=== PATIENT | male | born 1975 | race Caucasian/White ===

== ENCOUNTER 2021-02-09 02:36 | Emergency (ER) | payer OTHER, BC, SELFPAY ==
--- NOTE | ~2021-02-09 | CT_ITS ---
EXAMINATION: CT brain wo con DATE: 02/09/2021 03:44 INDICATION: Head injury post fall presenting with nausea and vomiting TECHNIQUE: Computed tomography (CT) of the head was performed without intravenous contrast. Sagittal and coronal reconstructions were performed. Automated exposure control and iterative reconstruction t echnique were employed. The dose-length product was 681.00 mGy-cm. COMPARISON: None FINDINGS: No fracture. Very thin hyperdensity which extends in a linear pattern along the anterior falx which c ould represent a vessel but which more posteriorly at the central aspect of the falx extends across a wide region also raising the possibility of either a tiny subdural hemorrhage or dural calcification . No other lesions suspicious for intracranial hemorrhage identified. No acute infarction or abnormal extra axial fluid collection. Ventricles are normal and symmetric. No mass/mass effect. Near complet e opacification of the right frontal and maxillary sinuses and the intervening anterior right ethmoid air cells with complete opacification of the frontoethmoidal recess. The orbits and mastoid air cell s are normal. IMPRESSION: 1. Very thin hyperdense region along the falx which in the acute setting raises concern for a tiny chou bdural hemorrhage. Differential would include dural calcification. 2. Prominent right-sided sinus disease. Reviewed, dictated and finalized at location A. IMPRESSION: 1. Very thin hyperdense region along the falx which in the acute setting raises concern for a tiny subdural hemorrhage. Differential would include dural calci fication. 2. Prominent right-sided sinus disease.
--- NOTE | ~2021-02-09 | XR_ITS ---
EXAMINATION: XR chest 2V DATE: 02/09/2021 03:46 INDICATION: Fall with vomiting TECHNIQUE: PA and lateral views of the chest were obtained. COMPARISON: None FINDINGS: The lungs are clear with no focal airspace opacities, pulmonary edema, pleural effusion or pneumothor ax. The cardiomediastinal silhouette is normal. Visualized bones and soft tissues are unremarkable. IMPRESSION: 1. No acute cardiopulmonary disease. Reviewed, dictated and finalized at location A.
--- NOTE | ~2021-02-09 | CT_ITS ---
EXAMINATION: CT abdomen pelvis w con DATE: 02/09/2021 03:44 INDICATION: Vomiting. Abdominal injury. TECHNIQUE: Computed tomography (CT) of the abdomen and pelvis was performed with 100 mL Omnipaque 350 intravenous contrast. Automated exposure control and iterative reconstruction technique were employe d. The dose-length product was 1447.68 mGy-cm. COMPARISON: None. FINDINGS: The visualized portions of the lung bases demonstrate mild atelectasis. There are 7 mm and 5 mm nodules along the left major fissure. There are 5 mm and 6 mm nodules in right lower lobe. No pl eural effusion. The heart size is normal. No pericardial effusion. The liver, gallbladder, spleen, pa ncreas, adrenal glands, and kidneys are normal. There is a left inguinal hernia containing fat. There are no dilated loops of bowel. The appendix is normal. There is liquid stool in the colon suggestive of diarrhea. There are no pathologically enlarged lymph nodes. There is no free intraperitoneal flui d. There are chronic bilateral L5 pars defects with 8 mm anterolisthesis of L5 on S1. There is severe lower lumbar spondylosis. IMPRESSION: 1. Pulmonary nodules measuring up to 7 mm, probably benign. Consider noncontrast chest CT in 6-12 mon ths. 2. Left inguinal hernia containing fat. Reviewed, dictated and finalized at location B. IMPRESSION: 1. Pulmonary nodules measuring up to 7 mm, probably benign. Consider noncontras t chest CT in 6-12 months. 2. Left inguinal hernia containing fat.
--- NOTE | 2021-02-09 02:40 | ED.NAVMDI ---
HPI - Nausea/Vomiting/Diarrhea General Chief complaint: Nausea/Vomiting/Diarrhea Stated complaint: n/v Time Seen by Provider: 02/09/21 02:40 Source: patient and family Mode of arrival: ambulatory Limitations: no limitations History of Present Illness HPI Narrative: Patient is a 45-year-old male who presents for evaluation of nausea, vomiting, abdominal pain since a fall this evening. Patient has had intermittent abdominal pain, numerous episodes of nonbloody, nonbilious emesis since a fall from 8 feet earlier today. 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 Patient is not sure if he had any head trauma, unsure about loss of consciousness, but states he thinks he does not did not lose consciousness. He denies any headache, vision changes, focal weakness or numbness. He reports nausea with numerous episodes of vomiting. He reports intermittent mild frontal abdominal pain. He denies flank pain. No dysuria. He reports he was seen at an urgent care when he had some bruising to his left leg and hip pain and all of his x-rays were negative. He is walking normally. He is not on any anticoagulation. Related Data Home Medications Medication Instructions Recorded Confirmed No Home Medications 02/09/21 02/09/21 Allergies Allergy/AdvReac Type Severity Reaction Status Date / Time No Known Allergies Allergy Verified 02/09/21 02:59 Review of Systems Review of Systems: Narrative: CONSTITUTIONAL: Denies fever, chills, or sweats. EYES: Denies visual changes, redness, or discharge. ENT: Denies rhinorrhea, congestion, sore throat, or otalgia. CARDIOVASCULAR: Denies chest pain, palpitations, or edema. RESPIRATORY: Denies cough or dyspnea. GASTROINTESTINAL: Reports abdominal pain, nausea and vomiting GENITOURINARY: Denies dysuria or hematuria. SKIN: Denies rash or itching. MUSCULOSKELETAL: Denies back pain, joint pain, or myalgia. NEUROLOGIC: Denies headache, numbness, or weakness. [facility] Social History Social History (Updated 02/09/21 @ 02:59 by Laura Rodrigues MD) Smoking status: Never smoker Alcohol intake: never Substance use: never Living arrangements: with family Gender identity (if verbalized by the patient): Male Exam Narrative: Exam Narrative: Nursing note and vitals reviewed. CONSTITUTIONAL: The patient appears well-developed and well-nourished. No distress. HEAD: Normocephalic and atraumatic. EYES: PERRL, EOMI, normal conjunctiva, anicteric EARS: External ears clear bilaterally, no hemotympanum MOUTH: OP clear, no erythema, exudates NECK: midline trachea, supple, FROM. No midline cervical spinal tenderness. CARDIOVASCULAR: Normal rate, regular rhythm, normal heart sounds and intact distal pulses. No murmurs, rubs, gallops. PULMONARY: Effort normal and breath sounds normal. No respiratory distress. The patient has no wheezes, rales, ronchi. No chest wall tenderness, crepitus or ecchymoses. ABDOMINAL: Soft. Nontender, nondistended. No palpable masses. No ecchymoses. EXTREMITIES:: moving all extremities symmetrically. -RUE: No deformity. Normal ROM at shoulder, elbow, wrist, and hand. Sensation intact M/U/R. Pulse 2+. -LUE: No deformity. Normal ROM at shoulder, elbow, wrist, and hand., Sensation intact M/U/R. Pulse 2+ -RLE: No deformity. Normal ROM at hip, knee, ankle. Sensation intact distally. -LLE: No deformity. Normal ROM at hip, knee, ankle. Sensation intact distally. Abrasion to the left lateral thigh, no expanding hematoma. NEUROLOGY: The patient is alert and oriented to person, place, and time. Finger to nose intact bilaterally. EOMs intact without nystagmus. No facial droop/asymmetry noted bilaterally. Grimace intact. Intact sensation in face. Hearing intact bilaterally. Shoulder shrug intact. Strength 5/5 bilateral upper extremities. Strength 5/5 bilateral lower extremities. Reflexes 2+ patellar. Heel to parra intact bilaterally. Course Vital Signs
[2021-02-09 02:41] VITALS: BP 128/98; PULSE 108; RESP 16; O2SAT 98
--- NOTE | 2021-02-09 02:55 | ECG_ITS ---
Measurements Intervals [place] Rate: 101 P: 37 HI: 145 QRS: 7 QRSD: 99 T: 26 QT: 319 QTc: 414 Interpretive Statements SINUS TACHYCARDIA MINIMAL Q WAVES- HIGH LATERAL LEADS BORDERLINE T WAVE ABNORMALITY- INFERIOR LEADS BORDERLINE ECG Electronically Signed On 02-09-2021 7:05:55 CDT by Dajuan Dozier D.O.
[2021-02-09 03:07] LABS: Basophils Percent Auto 0.2 % (0.2-1.2); Eosinophils Absolute Auto 0.1 K/mm3 (0-0.3); Eosinophils Percent Auto 0.3 % (0-4.4); Hematocrit 46.6 % (42.0-52.0); Hemoglobin 15.7 g/dL (14.0-18.0); Immature Granulocyte Absolute 0.05 K/mm3 (0.00-0.031); Immature Granulocyte Percent A 0.3 % (0-0.5); Lymphocytes Percent Auto 2.1 % (18.3-44.2); Mean Corpuscular HGB Conc 33.7 g/dl (32-36); Mean Corpuscular Hemoglobin 30.3 pg (26-34); Mean Platelet Volume 9.4 fl (7.4-10.4); Monocytes Absolute Auto 1.1 K/mm3 (0.1-0.6); Monocytes Percent Auto 7.5 % (2.6-8.5); Neutrophils Absolute Auto 13.1 K/mm3 (1.3-6.7); Neutrophils Percent Auto 89.6 % (45.5-73.1); Platelet Count Result 312 k/mm3 (150-375); Red Blood Count 5.18 M/mm3 (4.6-6.20); Red Cell Distribution Width 13.7 % (11.5-14.5); White Blood Count 14.6 K/mm3 (4.5-10.0)
[2021-02-09] MEDS: SODIUM CHLORIDE 0.9% IV 1,000 ML 999 ML IV CONT (03:07)
[2021-02-09] MEDS: ONDANSETRON INJ 4 MG/2 ML VIAL IV PUSH (03:07)
[2021-02-09 03:13] LABS: Alanine Aminotransferase 26 U/L (4-50); Albumin Level 4.8 g/dL (3.5-5.1); Alkaline Phosphatase 76 U/L (38-126); Anion Gap 8 mmol/L (8-16); Aspartate Amino Transferase 42 U/L (17-59); Bilirubin,Total 1.3 mg/dL (0.2-1.3); Blood Urea Nitrogen 29 mg/dL (9-20); Calcium 9.8 mg/dL (8.4-10.2); Carbon Dioxide 32 mmol/L (22-30); Chloride 102 mmol/L (98-107); Estimated CRCL calculation 66 ml/min; Estimated Glomerular Filt Rate 59; Glucose 164 mg/dL (75-110); Lipase 69 U/L (23-300); Potassium 5.1 mmol/L (3.4-5.0); Sodium 142 mmol/L (137-145)
[2021-02-09 03:53] VITALS: BP 122/82; PULSE 99; RESP 20; O2SAT 99
[2021-02-09 04:18] LABS: Add Urine Microscopic? NO; Appearance Urine Clear (Clear); Bilirubin Urine Negative (Negative); Blood Urine Negative (Negative); Color Urine Yellow (Yellow); Glucose Urine UA Negative (Negative); Ketones Urine Negative (Negative); Leukocyte Esterase Ur Negative LEU/UL (Negative); Nitrate Urine Negative (Negative); Protein Urine Negative (Negative); Urobilinogen Urine Negative mg/dL (<2.0)
[2021-02-09 04:20] LABS: Specific Grav Ur > 1.060 (1.001-1.035)
[2021-02-09 05:18] VITALS: BP 110/72; PULSE 84; RESP 18; O2SAT 99
--- NOTE | 2021-02-09 07:40 | PC.NURSE ---
pt to be direct admit to [facility]. waiting bed assignment.
[2021-02-09 07:41] VITALS: BP 126/87; PULSE 102; RESP 17; O2SAT 99
--- NOTE | 2021-02-09 07:45 | PC.NURSE ---
[facility] bed placement team contacted ed states hospital is full but will call when bed is available.
[2021-02-09 08:17] VITALS: BP 115/85; PULSE 101; RESP 15; O2SAT 99
--- NOTE | 2021-02-09 08:39 | PC.NURSE ---
report to [facility]. pt to be direct admit to [id number].
[2021-02-09 08:41] LABS: Partial Thromboplastin Time 28.3 SECONDS (22.3-36.8)
[2021-02-09 09:30] VITALS: BP 107/75; PULSE 95; RESP 16; O2SAT 98
== END 2021-02-09 09:30 | disposition short-term general hospital (02) ==
PROVIDERS: Emergency Provider Emergency Medicine
DX: S06.300A Unspecified focal traumatic brain injury without loss of consciousness, initial encounter (principal); R11.2 Nausea with vomiting, unspecified; R00.0 Tachycardia, unspecified; R94.31 Abnormal electrocardiogram [ECG] [EKG]; K40.90 Unilateral inguinal hernia, without obstruction or gangrene, not specified as recurrent; R91.8 Other nonspecific abnormal finding of lung field; W17.89XA Other fall from one level to another, initial encounter
CPT/HCPCS: 36415; 70450; 71046; 74177; 80053; 81003; 83690; 85025; 85730; 93005; 96361; 96374; 99291; J2405; J7030; Q9967